=== PATIENT | male | born 2000 | race Caucasian/White ===

== ENCOUNTER 2023-01-18 11:11 | Emergency (ER) | payer SELFPAY ==
[2023-01-18 11:18] VITALS: BP 139/67; PULSE 64; RESP 16; TEMP 36.8; O2SAT 100
--- NOTE | 2023-01-18 11:22 | P.SPORTS_ITS ---
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 Gender identity (if verbalized by the patient): Male Comments At the time of my signature, I reviewed and agree with the nursing past medical, surgical, social, and family history. There is no relevant family history pertinent to the patient complaint. Allergies: Allergies Allergy/AdvReac Type Severity Reaction Status Date / Time No Known Allergies Allergy Mild Verified 01/18/23 11:15 Home Medications: Home Medications Medication Instructions Recorded Confirmed No Home Medications 01/18/23 01/18/23 Vital Signs: Vital Signs Temperature 98.3 F 01/18/23 11:18 Pulse Rate 64 01/18/23 11:18 Respiratory Rate 16 01/18/23 11:18 Blood Pressure 139/67 01/18/23 11:18 Pulse Oximetry 100 01/18/23 11:18 Oxygen Delivery Room Air 01/18/23 11:18 Temperature 98.3 F 01/18/23 11:18 Pulse Rate 64 01/18/23 11:18 Respiratory Rate 16 01/18/23 11:18 Blood Pressure 139/67 01/18/23 11:18 Pulse Oximetry 100 01/18/23 11:18 Oxygen Delivery Room Air 01/18/23 11:18 reviewed Services Provided Sports Physical Completed: Micheal Maria was seen today, 01/18/23, for a sports physical. The paper physical form was completed and scanned into the chart. The original paper physical form was given to the patient for submission to their school. Discharge Plan Discharge Clinical Impression: Routine sports physical exam Patient Disposition: Home, Self-Care Condition: Stable Instructions: Antibiotic Form, Normal Exam (ED) Prescriptions: No Action No Home Medications Follow-up/Referrals: Cheryl Pedraza MD [Primary Care Provider] - Time of Disposition: 11:36
== END 2023-01-18 11:34 | disposition home or self-care (01) ==
PROVIDERS: Emergency Provider Nurse Practitioner Family; PCP Pediatrics
DX: Z02.5 Encounter for examination for participation in sport (principal)
CPT/HCPCS: 99199